=== PATIENT | female | born 1990 | race Hispanic/Latino ===

== ENCOUNTER 2017-09-23 16:34 | Emergency (ER) | payer OTHER ==
[~2017-09-23] VITALS: Ht 162.6 cm; Wt 76.2 kg
[2017-09-23 17:28] VITALS: BP 124/79
== END 2017-09-23 19:38 | disposition admitted as inpatient to this hospital (09) ==
LOC: ERH 16:34
DX: R10.2 Pelvic and perineal pain (principal)
CPT/HCPCS: 81025; 99281